=== PATIENT | female | born 1940 | race Caucasian/White ===

== ENCOUNTER → 2018-10-06 | Outpatient (CLI) | payer MEDICARE, OTHER | END | disposition home or self-care (01) | LOC: LAB SHORT 09:30 → LAB 09:30 | DX: R30.0 Dysuria (principal) | CPT/HCPCS: 87077; 87086; 87186 ==

== ENCOUNTER → 2020-01-16 | Outpatient (CLI) | payer MEDICARE, OTHER | END | disposition home or self-care (01) | LOC: LAB SHORT 16:32 → LAB 16:32 | DX: R30.0 Dysuria (principal) | CPT/HCPCS: 87086 ==

== ENCOUNTER → 2020-04-04 | Outpatient (CLI) | payer MEDICARE, OTHER | END | disposition home or self-care (01) | LOC: LAB 15:45 → LAB SHORT 15:45 | DX: R30.0 Dysuria (principal) | CPT/HCPCS: 87077; 87086; 87186 ==

== ENCOUNTER → 2020-07-22 | Outpatient (CLI) | payer MEDICARE, OTHER | END | disposition home or self-care (01) | LOC: LAB SHORT 10:13 → LAB EV 10:13 | DX: R30.0 Dysuria (principal) | CPT/HCPCS: 87077; 87086; 87186 ==

== ENCOUNTER → 2020-11-20 | Outpatient (CLI) | payer MEDICARE, OTHER | END | disposition home or self-care (01) | LOC: LAB SHORT 15:33 → LAB 15:33 → PLD 15:33 | DX: R30.0 Dysuria (principal) | CPT/HCPCS: 87077; 87086; 87186 ==

== ENCOUNTER → 2021-01-30 | Outpatient (CLI) | payer MEDICARE, OTHER | END | disposition home or self-care (01) | LOC: LAB SHORT 10:46 | DX: R30.0 Dysuria (principal) | CPT/HCPCS: 87086 ==

== ENCOUNTER → 2021-05-15 | Outpatient (CLI) | payer MEDICARE, OTHER | END | disposition home or self-care (01) | LOC: LAB 15:42 → LAB SHORT 15:42 | DX: R30.0 Dysuria (principal) | CPT/HCPCS: 87086 ==

== ENCOUNTER 2022-02-13 07:58 | Inpatient (IN) | payer MEDICARE, OTHER ==
[~2022-02-13] VITALS: Ht 172.7 cm; Wt 70.5 kg
[2022-02-13 08:47] LABS: BASOPHILS ABSOLUTE AUTO 0.03 K/mm3 (0.00-0.23); BASOPHILS PERCENT AUTO 0 % (0-2); EOSINOPHILS ABSOLUTE AUTO 0.07 K/mm3 (0.00-0.68); EOSINOPHILS PERCENT AUTO 1 % (0-6); Hematocrit 37.7 % (33.0-51.0); Hemoglobin 12.4 g/dL (11.5-16.0); IMMATURE GRAN ABSOLUTE AUTO 0.06 K/mm3 (0.00-0.10); IMMATURE GRAN PERCENT AUTO 1 % (0-1); LYMPHOCYTES ABSOLUTE AUTO 1.57 K/mm3 (0.84-5.20); LYMPHOCYTES PERCENT AUTO 17 % (21-46); MONOCYTES ABSOLUTE AUTO 0.54 K/mm3 (0.16-1.47); MONOCYTES PERCENT AUTO 6 % (4-13); Mean Corpuscular HGB 30.8 pg (26.0-34.0); Mean Corpuscular HGB Conc 32.9 g/dL (31.5-36.5); Mean Corpuscular Volume 94 fL (80-100); Mean Platelet Volume 9.6 fL (9.1-12.4); NEUTROPHILS ABSOLUTE AUTO 6.74 K/mm3 (1.96-9.15); NEUTROPHILS PERCENT AUTO 75 % (41-73); Platelet Count 193 K/mm3 (150-400); RDW Coefficient Variation 14.2 % (11.7-14.2); RDW Standard Deviation 49.1 fL (35.1-46.3); Red Blood Cell Count 4.02 M/mm3 (3.80-5.20); White Blood Cell Count 9.01 K/mm3 (4.00-11.30)
[2022-02-13 09:09] LABS: Albumin, Blood 3.6 g/dL (3.4-5.0); Albumin/Globulin Ratio 1.2 (0.8-1.8); Bilirubin, Total 0.8 mg/dL (0.1-1.0); Bun/Creatinine Ratio 19.7 (12.0-20.0); Calcium, Blood 9.1 mg/dL (8.5-10.1); Creatinine, Blood 1.22 mg/dL (0.40-1.00); Potassium, Blood 3.8 mmol/L (3.5-5.5); Total Protein, Blood 6.6 g/dL (6.4-8.2)
[2022-02-13] MEDS ORDERED: METOPROLOL TART25 MG PO (09:32)
[2022-02-13] MEDS ORDERED: LEVOTHYROXINE PO (09:32)
[2022-02-13] MEDS ORDERED: OMEPRAZOLE PO (09:33)
[2022-02-13] MEDS ORDERED: PRILOSEC PO (09:33)
[2022-02-13] MEDS ORDERED: PRAVASTATIN SOD20 MG PO (10:16)
[2022-02-13] MEDS ORDERED: AMLODIPINE BESY10 MG PO (10:16)
[2022-02-13] MEDS ORDERED: Prinivil10 MG PO (10:16)
[2022-02-13] MEDS ORDERED: TACR1 PO (10:17)
[2022-02-13] MEDS ORDERED: MULVITA PO (10:19)
[2022-02-13] MEDS ORDERED: CALCIUM 600 +1 EA11 PO (10:19)
[2022-02-13] MEDS ORDERED: MYCOPHENOLIC A PO (10:19)
--- NOTE | 2022-02-13 17:43 | NUR ---
SHIFT NOTE PT ARRIVED THIS AFTERNOON FROM ER DX CHF EXACERBATION. PT ARRIVES A/O X4 ANSWERING QUESTIONS APPROPRIATELY IN FULL SENTENCES. NOTED SOB ON ARRIVAL, PT STS THAT WORK OF BREATHING HAS NOT CHANGED T/O THE DAY OR WITH THE EARLIER DOSE OF LASIX. PT ARRIVED TO UNIT WITH HR IN THE 80s WITH PACED RHYTHM, BBB IN AFIB, CARDIZEM WAS STOPPED ON ARRIVAL TO THE UNIT. PT HAS REMAINED WITH HR UNDER 110 SINCE ARRIVAL WITH CARDIZEM OFF. VSS. PT DENIES CP. PT DID RECIEVE AN ADDITIONAL DOSE OF LASIX THIS EVENING, THERE IS NO CHANGE IN LUNG SOUNDS OR CHANGE IN SOB. PT HAS NOT HAD URINE OUTPUT SINCE ADMINISTRATION. PT'S EVENING DOSE OF PREVASTATIN WAS CHANGED TO 2100 SPOUSE REPORTS THAT PT TAKES ALL EVENING MEDS AT 2100. WILL CONTINUE TO [facility]
--- NOTE | 2022-02-13 20:30 | NUR ---
ASSUMED CARE OF PATIENT AT APPROXIMATELY 1900 FROM BRAIN Cifuentes RN. PATIENT ALERT AND ORIENTED X4; HARD OF HEARING AT TIMES; ONE ASSIST OUT OF BED TO BEDSIDE COMMODE PER REPORT. PATIENT DENIES PAIN, DIZZINESS, AND NAUSEA. PATIENT SHORT OF BREATH WITH AMBULATION TO BEDSIDE COMMODE; RECOVERS AFTER A FEW MINUTES. PIV X1 S/L. AFIB BBB ON TELE; OXYGEN SATURATION ABOVE 90% ON ROOM AIR. SURGERY TECHNICIAN YUAN Cadet ASSISTING WITH CARE.
[2022-02-14 04:12] LABS: BASOPHILS ABSOLUTE AUTO 0.02 K/mm3 (0.00-0.23); BASOPHILS PERCENT AUTO 0 % (0-2); EOSINOPHILS ABSOLUTE AUTO 0.03 K/mm3 (0.00-0.68); EOSINOPHILS PERCENT AUTO 0 % (0-6); Hematocrit 34.8 % (33.0-51.0); Hemoglobin 11.3 g/dL (11.5-16.0); IMMATURE GRAN ABSOLUTE AUTO 0.03 K/mm3 (0.00-0.10); IMMATURE GRAN PERCENT AUTO 0 % (0-1); LYMPHOCYTES ABSOLUTE AUTO 1.12 K/mm3 (0.84-5.20); LYMPHOCYTES PERCENT AUTO 17 % (21-46); MONOCYTES ABSOLUTE AUTO 0.56 K/mm3 (0.16-1.47); MONOCYTES PERCENT AUTO 8 % (4-13); Mean Corpuscular HGB 30.5 pg (26.0-34.0); Mean Corpuscular HGB Conc 32.5 g/dL (31.5-36.5); Mean Corpuscular Volume 94 fL (80-100); Mean Platelet Volume 9.4 fL (9.1-12.4); NEUTROPHILS ABSOLUTE AUTO 4.93 K/mm3 (1.96-9.15); NEUTROPHILS PERCENT AUTO 74 % (41-73); Platelet Count 165 K/mm3 (150-400); RDW Coefficient Variation 14.2 % (11.7-14.2); RDW Standard Deviation 48.8 fL (35.1-46.3); Red Blood Cell Count 3.71 M/mm3 (3.80-5.20); White Blood Cell Count 6.69 K/mm3 (4.00-11.30)
[2022-02-14 04:31] LABS: Bun/Creatinine Ratio 19.2 (12.0-20.0); Calcium, Blood 9.3 mg/dL (8.5-10.1); Creatinine, Blood 1.25 mg/dL (0.40-1.00); Potassium, Blood 4.1 mmol/L (3.5-5.5)
--- NOTE | 2022-02-14 06:08 | NUR ---
CALLED DR. TIJERINA TO REPORT PATIENT'S HEART RATE HAS BEEN TRENDING UP FOR THE PAST HOUR; CURRENTLY MAINTAINING 120'S AFIB; ORDERS FOR 5MG IV LOPRESSOR NOW AND AGAIN IN AN HOUR IF HEART RATE MAINTAINING 120'S.
--- NOTE | 2022-02-14 06:28 | NUR ---
ASSUMED CARE AT 1900. PT IS ALERT AND ORIENTED X4. PT'S HEART RATE HAS BEEN IN THE 100'S, BUT RECENTLY SAT IN THE 120'S. LOPRESSOR GIVEN PER MD. O2 HAS BEEN >92 ON RA, BUT NEEDS 1-2L NC WHILE/AFTER MOVING TO THE BEDSIDE COMMODE. PT BECOMES SOB AND FATIGUED AFTER EXERTION. PT HAD A LOOSE BROWN STOOL AT 0430. WAS NOT ABLE TO GET MUCH SLEEP AND SLEPT "5 MINUTES HERE AND THERE".
--- NOTE | 2022-02-14 10:05 | NUR ---
CARE ASSUMPTION THIS RN ASSUMED CARE AT 0700 FROM GENNARO MORAN AND STUDENT RN. VSS. TELE AFIB 111. PATIENT IS ALERT AND ORIENTED X4. LEFT PUPIL IS FIXED AND IRREGULAR DUE TO SURGERY. NEURO IS INTACT. REPORTS NO NUMBNESS OR TINGLING. PATIENT REPORTS NO PAIN. PATIENT REPORTS NO CHEST PAIN/PRESSURE. STRONG RADIAL AND PEDIS PULSES. CAP REFILL <3SECONDS. PATIENT REPORTS SHORTNESS OF BREATH WITH EXERTION. LUNG SOUNDS CLEAR AND LOWER LOBES DIM. ABD IS SOFT, NONTENDER, ACTTIVE. SKIN IS CLEAN DRY AND INTACT. FISTULA TO LEFT ARM WITH THRILL AND BRUIT. HACK IN TO SEE PATIENT THIS AM AND IF PATIENT HEART RATE STAY CONTROLLED CAN BE MADE MEDICAL STATUS WITH TELE. PATIENT HAS NO QUESTIONS OR CONCERNS AT THIS TIME. PATIENT UNDERSTANDS PLAN OF CARE. PATIENT USES CALL LIGHT APPROPRIATELY. PATIENT HAD A LOOSE BROWN STOOL THIS AM. PATIENT DID NOT EAT BREAKFAST THIS AM. IS AT BEDSIDE. PATIENT TRANSFERS A ONE PERSON ASSIST. CALL LIGHT WITHIN REACH AND BED IN LOWEST POSITION. WILL CONTINUE TO MONITOR AND PROVIDE CARE.
--- NOTE | 2022-02-14 17:26 | NUR ---
SHIFT SUMMARY PATIENT NEURO REMAINS INTACT. VSS. TELE AFIB 100-120. PATIENT HAS PO CARDIZEM FOR PRN FOR HEART RATE GREATER THAN 120. PATIENT USES CALL LIGHT APPORPRIATELY. PATIENT IS A ONE ASSIST TO THE BEDSIDE COMODE. PATIENT HEART RATE WILL TACH UP WHEN GETTING UP, BUT GOES BACK DOWN ONCE SHE IS RESTED. CALL LIGHT WITHIN REACH AND BED IN LOWEST POSITION. WILL CONTINUE TO MONITOR AND PROVIDE UNTIL HAND OFF WITH NEXT SHIFT.
--- NOTE | 2022-02-14 21:22 | NUR ---
ASSUMED CARE OF PATIENT AT APPROXIMATELY 1900 FROM BRAIN Mullins RN. PATIENT ALERT AND ORIENTED X4; HARD OF HEARING AT TIMES; ONE ASSIST OUT OF BED TO BEDSIDE COMMODE PER REPORT. PATIENT DENIES PAIN, DIZZINESS, AND NAUSEA. PATIENT SHORT OF BREATH WITH AMBULATION TO BEDSIDE COMMODE; RECOVERS AFTER A FEW MINUTES; PATIENT REPORTS SHORTNESS OF BREATH IMPROVE THROUGHOUT THE DAY. PIV X1 S/L. AFIB BBB ON TELE; OXYGEN SATURATION ABOVE 90% ON ROOM AIR.
[2022-02-15 04:10] LABS: Bun/Creatinine Ratio 21.3 (12.0-20.0); Calcium, Blood 8.9 mg/dL (8.5-10.1); Creatinine, Blood 1.41 mg/dL (0.40-1.00)
--- NOTE | 2022-02-15 06:35 | NUR ---
PATIENT SLEPT ABOUT SEVEN HOURS; NO OTHER ACUTE CHANGES TO REPORT.
--- NOTE | 2022-02-15 09:05 | NUR ---
CARE ASSUMPTION THIS RN ASSUMED CARE AT 0700 FROM JAS MORAN. VSS. TELE AFIBS 100-120, CURRENT 111. SPO2 >90% ON 2L NC WHEN THIS RN CAME ONTO SHIFT, BUT PATIENT IS CURRENTLY ON RA AND SPO2 >90%. NEURO IS INTACT. ALERT AND ORIENTED X4. LEFT PUPIL FIXED FROM CATARACT SURGERY THAT WENT WRONG AND IS LARGER THAN THE RIGHT. NO NUMBNESS OR TINGLING. PATIENT REPORTS NO CHEST PAIN/PRESSURE. CAP REFILL <3ECONDS, WARM EXTREMITIES TO TOUCH. STRONG RADIAL AND PEDAL PULSE BILATERALLY. PATIENT REPORTS SHORTNESS OF BREATH WITH EXERTION. LUNG SOUNDS CLEAR. ABD SOFT NONTENDER ACTIVE. SKIN IS CLEAN DRY AND INTACT. SEE SHIFT ASSESSMENT FOR FULL DETAILS. FISTULA HAS THRILL AND BRUIT. PATIENT AT BESIDE AND MD DOMINGUEZ IN TO SEE PATIENT THIS AM. PLAN IS TO DISCHARGE PATIENT THIS AFTERNOON. PATIENT DIDN'T EAT VERY MUCH BREAKFAST, BUT STATES SHE NORMALLY DOESN'T HAVE BREAKFAST. SHE DID EAT SOME OF THE FRUIT HER BROUGHT AND SAID SHE WOULD CONTINUE TO SNACK ON IT. PATIENT WAS ABLE TO WALK TO THE BATHROOM WITH A ONE PERSON STAND BY ASSIST. PATIENT USES CALL LIGHT APPROPRITATELY. CALL LIGHT WITHIN REACH AND BED IN LOWEST POSITION. WILL CONTINUE TO MONITOR AND PROVIDE CARE.
[2022-02-15] MEDS ORDERED: TORSE20 PO (10:14)
[2022-02-15] MEDS ORDERED: METO100ER PO (10:14)
--- NOTE | 2022-02-15 11:26 | NUR ---
DISCHARGE EDUCATION/DISCHARGE THIS RN EDUCATED THE PATIENT AND THE PATIENT . THIS RN WENT OVER THE DOSE CHANGE FOR THE PATIENTS MEDICATION ZESTRIL, THE CHANGE FROM METOPROLOL TATRATE TO SUCCINATE, AND NEW MEDICATION DEMEDEX (TORESMIDE). PATIENT AND BOTH VERABLIZED UNDERSTANDING AND RECEIVED PRINTED HANDOUTS WITH EDUCATIONAL INFORMATION. MEDICATIONS FAXED TO [facility], AND RECEIVED A FAX THAT THEY GOT THEM, AND MEDICATIONS CALLED IN. THIS RN WENT OVER HEART FAILURE EDUCATION PACKET. THE IMPROTANCE OF DAILY WEIGHTS, COMPLIANCE WITH MEDICATIONS, TAKING BLOOD PRESURE BEFORE MEDICATIONS AND HEART RATE, DIET COMPLIANCE, AND ACTIVTY AMONG A FEW. PATIENT HAS PACKET EDUCATION ON HEART FAILURE SELF-CARE WITH THEM TO TAKE HOME AND REVIEW MORE. PATIENT HAS UPDATED MEDICATION LIST WITH THEM. PATIENT HAS ALL PERSONAL BELONGINGS WITH THEM. PATIENT IV WAS REMOVED AND TIP WAS INTACT. PATIENT LEFT AT 1115 VIA WHEELCHAIR WITH ALL PERSONAL BELONGINGS AND IN NO DISTRESS. PATIENT WITH PATIENT AND TOOK PATIENT HOME.
== END 2022-02-15 11:14 | disposition home or self-care (01) | DRG 291 ==
LOC: ER 07:58 → PCU 07:59
PROVIDERS: Internal Medicine; Physician Assistant; ADMIT Internal Medicine
DX: I13.0 Hypertensive heart and chronic kidney disease with heart failure and stage 1 through stage 4 chronic kidney disease, or unspecified chronic kidney disease (principal); I50.31 Acute diastolic (congestive) heart failure; J96.01 Acute respiratory failure with hypoxia; J81.1 Chronic pulmonary edema; T86.19 Other complication of kidney transplant; D84.9 Immunodeficiency, unspecified; I48.91 Unspecified atrial fibrillation; N18.30 Chronic kidney disease, stage 3 unspecified; I27.20 Pulmonary hypertension, unspecified; I49.5 Sick sinus syndrome; E78.5 Hyperlipidemia, unspecified; E03.9 Hypothyroidism, unspecified; Z51.5 Encounter for palliative care; Z95.0 Presence of cardiac pacemaker; Z88.8 Allergy status to other drugs, medicaments and biological substances; Z85.850 Personal history of malignant neoplasm of thyroid; Z90.710 Acquired absence of both cervix and uterus; Z90.49 Acquired absence of other specified parts of digestive tract; Z79.811 Long term (current) use of aromatase inhibitors; Z79.899 Other long term (current) drug therapy; Z98.890 Other specified postprocedural states
CPT/HCPCS: 36415; 71045; 80048; 80053; 83735; 83880; 84443; 84484; 85025; 93005; 93010; 93306; 96365; 96366; 99285-25; A9270; J1644; J1940; J7507; J7517

== ENCOUNTER 2022-12-17 06:49 | Day surgery (SDC) | payer MEDICARE, OTHER ==
[~2022-12-17] VITALS: Ht 172.7 cm; Wt 65.6 kg
[~2022-12-17 06:49] MED LIST: AMLODIPINE BESY10 MG PO; AMOCLA875 PO; CALCIUM 600 +1 EA11 PO; CYCL10 PO; LEVOTHYROXINE PO; METO100ER PO; METOPROLOL TART25 MG PO; MULVITA PO; MYCOPHENOLIC A PO; OMEPRAZOLE PO; PRAVASTATIN SOD20 MG PO; PRILOSEC PO; Prinivil10 MG PO; TACR1 PO; TORSE20 PO
--- NOTE | 2022-12-17 10:12 | NUR ---
SALES REPRESENTATIVE PUBLICATIONS IN ROOM FOR LIMITED ECHO/BUBBLE STUDY. VSS. [place].
--- NOTE | 2022-12-17 11:25 | NUR ---
PT VERBALIZES UNDERSTANDING WRITTEN INSTRUCTIONS. VSS.NADN. PT R AC SITE REMAINS CLEAR. NO BLEEDING OR HEMATOMA NOTED. PT IV DC'D. CATH INTACT. PRESSURE DSG APPLIED. PT DENIES QUESTIONS OR CONCERNS. PT DC TO HOME VIA WC.
== END 2022-12-17 12:07 | disposition home or self-care (01) ==
LOC: MHTC 06:49
DX: I42.9 Cardiomyopathy, unspecified (principal); I50.30 Unspecified diastolic (congestive) heart failure; N18.32 Chronic kidney disease, stage 3b; I27.22 Pulmonary hypertension due to left heart disease; I13.0 Hypertensive heart and chronic kidney disease with heart failure and stage 1 through stage 4 chronic kidney disease, or unspecified chronic kidney disease; Z91.041 Radiographic dye allergy status; K21.9 Gastro-esophageal reflux disease without esophagitis; I48.0 Paroxysmal atrial fibrillation; E03.9 Hypothyroidism, unspecified; D63.1 Anemia in chronic kidney disease
CPT/HCPCS: 93308; 93321; 93451; C1769; C1894; J1644; J7030; J7050

== ENCOUNTER → 2023-06-18 | Outpatient (CLI) | payer MEDICARE, OTHER | END | disposition home or self-care (01) | LOC: LAB SHORT 12:15 → LAB 12:15 | DX: R30.0 Dysuria (principal) | CPT/HCPCS: 87077; 87086; 87186 ==

== ENCOUNTER → 2023-10-21 | Outpatient (CLI) | payer MEDICARE, OTHER | LOC: LAB 12:31 → LAB SHORT 12:31 | DX: R30.0 Dysuria (principal) | CPT/HCPCS: 87077; 87086; 87186 ==

== ENCOUNTER → 2024-01-19 | Outpatient (CLI) | payer MEDICARE, OTHER | END | disposition home or self-care (01) | LOC: LAB 18:21 → LAB SHORT 18:21 | DX: N39.0 Urinary tract infection, site not specified (principal) | CPT/HCPCS: 87086 ==